=== PATIENT | male | born 1985 | race Caucasian/White ===

== ENCOUNTER 2017-01-28 11:55 | Emergency (ER) | payer OTHER ==
[~2017-01-28] VITALS: Ht 177.8 cm; Wt 65.8 kg
[~2017-01-28 11:55] MED LIST: AMOXIL 875 MG875 MG PO; MOTRIN 600 MG600 MG PO; PREDNISONE 20MG20 MG PO
--- NOTE | 2017-01-28 12:31 | ED SKIN/ALLERGY COMPLAINT ---
History of Present Illness General Chief Complaint: Laceration Procedure Stated Complaint: LAC TO HEAD Source: patient Exam Limitations: no limitations Allergies Uncoded Allergies: SEASONAL (03/30/12) Reconcile Medications No Known Home Medications Triage Note: 31 Y/O MALE C/O LACERATION TO R SIDED EYEBROW, CUT ON PLASTIC HANDLE OF SHOVEL. UNSURE OF LAST TETANUS. CLEAN LACERATION NOTED WITH NO ACTIVE BLEEDING PT STATES THIS IS NOT WORKMANS COMP. Triage Nurses Notes Reviewed? yes HPI: This patient is a 31-year-old male who presented to the emergency department today for evaluation of a laceration to his right eyebrow. The patient reported that he was shoveling sounds morning when the handle of the shovel bounced back and hit him in the head. He denied any loss of consciousness. He reported that just after the incident, he felt a little dizzy, but this resolved. He reported that he is having 5 out of 10, throbbing pain at the site of the laceration. He denied any headaches, blurry vision, lightheadedness, or any current dizziness. The patient is unsure of his last tetanus immunization. (LELA CROSS PA-C) Vital Signs & Intake/Output Vital Signs & Intake/Output ED Intake and Output 01/29 0000 01/28 1200 Intake Total Output Total Balance Patient 145 lb Weight Past History Travel History Traveled to [place] past 21 day No Medical History Any Pertinent Medical History? see below for history Neurological: NONE EENT: NONE Cardiovascular: NONE Respiratory: NONE Gastrointestinal: NONE Hepatic: NONE Renal: NONE Musculoskeletal: NONE Psychiatric: NONE Endocrine: NONE Blood Disorders: NONE Cancer(s): NONE WOODWORKING MACHINE OPERATOR/Reproductive: NONE Surgical History Surgical History: non-contributory Psychosocial History What is your primary language Welsh Tobacco Use: Current Daily Use Daily Tobacco Use Amount/Type: => 5 Cigarettes daily Family History Hx Contributory? No (LELA CROSS PA-C) Review of Systems Review of Systems Constitutional: Reports: no symptoms. EENTM: Reports: no symptoms. Respiratory: Reports: no symptoms. Cardiovascular: Reports: no symptoms. GI: Reports: no symptoms. Musculoskeletal: Reports: no symptoms. Skin: Reports: see HPI. Neurological/Psychological: Reports: no symptoms. All Other Systems: Reviewed and Negative (LELA CROSS PA-C) Physical Exam Physical Exam General Appearance: well developed/nourished, no apparent distress, alert, awake Comments: Well-developed well-nourished person in no acute distress HEENT: Head normocephalic/atraumatic, no bony deformities or step-offs of the skull, moist mucous membranes Neck: Supple Back: Normal gait Respiratory: No respiratory distress. Speaking Extremities: No edema, full range of motion Neuro: Alert and oriented x3. No focal neurologic deficits Psych: Mood affect normal, normal memory normal judgment. Skin: Warm and dry, no rash on exposed skin. Approximately 1 cm in length, linear, subcutaneous laceration to the lateral aspects of the right eyebrow with mild amount of active bleeding, no stranding erythema or edema, no retained foreign body, and nontender to palpation. (LELA CROSS PA-C) Progress Differential Diagnosis: abscess/cellulitis, skin laceration, skin tear, skin avulsion, concussion, intracranial hemorrhage Plan of Care: Laboratory Tests 01/28/17 1207: Urine Test Cancelled Departure Departure Disposition: HOME OR SELF CARE Condition: Stable Clinical Impression Primary Impression: Laceration Referrals: JUAN ALBERTO CLARK,CRISTAL Thrasher (PCP/Family) Additional Instructions: Please keep the wound site clean and dry. You may apply bacitracin to the wound once a day over the next 3 days. Please return to the emergency department in 7 days for a wound check and suture removal. Return sooner for any signs of infection such as fevers, chills, spreading of redness around the wound site, pus drainage from the wound site, or for any other concerns. Departure Forms: Customer Survey General Discharge Information Prescriptions: Current Visit Scripts No Known Home Medications (LELA CROSS PA-C) PA/JEWELRY ESTIMATOR Co-Sign Statement Statement: ED Attending supervision documentation- [] I saw and evaluated the patient. I have also reviewed all the pertinent lab results and diagnostic results. I agree with the findings and the plan of care as documented in the PA's/JEWELRY ESTIMATOR's documentation. [x] I have reviewed the ED Record and agree with the PA's/JEWELRY ESTIMATOR's documentation. [] Additions or exceptions (if any) to the PAs/JEWELRY ESTIMATOR's note and plan are summarized below: [] (HEBER LOREDO DO) Procedures Laceration/Wound Repair Laceration/Wound Repair: Wound Location: face Wound's Depth, Shape: linear, subcutaneous Wound Length (cm): 1 Wound Explored: irrigated extensively Irrigated w/ Saline (ccs): 500 Betadine Prep? Yes Anesthesia: 1% lidocaine Volume Anesthetic (ccs): 2 Wound Repaired With: sutures Suture Size/Type: 5:0 Number of Sutures: 3 Layer Closure? No Sterile Dressing Applied: Yes Splint Applied? No Sling Applied? No Tetanus Status: not up to date Progress: ENEDELIA student assisted in closure of this wound (LELA CROSS PA-C)
[2017-01-28 13:36] VITALS: BP 120/80
== END 2017-01-28 13:36 ==
LOC: ERH 11:55
DX: S01.111A Laceration without foreign body of right eyelid and periocular area, initial encounter (principal); W22.8XXA Striking against or struck by other objects, initial encounter; Y93.H1 Activity, digging, shoveling and raking; Y93.9 Activity, unspecified
CPT/HCPCS: 81025; 90471; 90714

== ENCOUNTER 2017-02-04 09:04 | Emergency (ER) | payer OTHER ==
[~2017-02-04] VITALS: Ht 177.8 cm; Wt 63.5 kg
[2017-02-04 09:06] VITALS: BP 113/70
--- NOTE | 2017-02-04 09:17 | ED SKIN/ALLERGY COMPLAINT ---
History of Present Illness General Chief Complaint: Suture Removal/Wound Recheck Stated Complaint: SUTURE REMOVAL Source: patient Exam Limitations: no limitations Vital Signs & Intake/Output Vital Signs & Intake/Output Vital Signs Date Time Temp Pulse Resp B/P Pulse O2 O2 Flow FiO2 Ox Delivery Rate 02/04 0906 97.9 65 16 113/70 98 Room Air Allergies Uncoded Allergies: SEASONAL (03/30/12) Reconcile Medications No Known Home Medications Triage Note: HERE FOR SUTURE REMOVAL RIGHT EYEBROW PLACED LAST THURSDAY. Triage Nurses Notes Reviewed? yes HPI: This patient is a 31-year-old male who presented to the emergency department today for suture removal. On 01/28/2017, he had 3 sutures placed to his right eyebrow. The patient denied any pain. No fevers or chills. No pus drainage from the wound site. No spreading of redness around the wound site. No other complaints. (LELA CROSS PA-C) Past History Travel History Traveled to [place] past 21 day No Medical History Any Pertinent Medical History? see below for history Neurological: NONE EENT: NONE Cardiovascular: NONE Respiratory: NONE Gastrointestinal: NONE Hepatic: NONE Renal: NONE Musculoskeletal: NONE Psychiatric: NONE Endocrine: NONE Blood Disorders: NONE Cancer(s): NONE SECURITY SYSTEMS INTEGRATOR/Reproductive: NONE Tetanus Vaccine: 01/28/17 Surgical History Surgical History: non-contributory Psychosocial History What is your primary language Maltese Tobacco Use: Current Daily Use Daily Tobacco Use Amount/Type: => 5 Cigarettes daily ETOH Use: denies use Illicit Drug Use: denies illicit drug use Family History Hx Contributory? No (LELA CROSS PA-C) Review of Systems Review of Systems Constitutional: Reports: no symptoms. EENTM: Reports: no symptoms. Respiratory: Reports: no symptoms. Cardiovascular: Reports: no symptoms. GI: Reports: no symptoms. Musculoskeletal: Reports: no symptoms. Skin: Reports: see HPI. Neurological/Psychological: Reports: no symptoms. All Other Systems: Reviewed and Negative (LELA CROSS PA-C) Physical Exam Physical Exam General Appearance: well developed/nourished, no apparent distress, alert, awake Comments: Well-developed well-nourished person in no acute distress HEENT: Head normocephalic/atraumatic, moist mucous membranes Neck: Supple, no lymphadenopathy Back: Normal gait Respiratory: No respiratory distress. Speaking in full sentences Extremities: No edema, full range of motion Neuro: Alert and oriented x3 Psych: Mood affect normal, normal memory normal judgment. Skin: Warm and dry, no rash on exposed skin. 3 sutures placed to the lateral aspect of right eyebrow with no surrounding erythema or edema, no drainage, and nontender to palpation (LELA CROSS PA-C) Progress Differential Diagnosis: abscess/cellulitis, SUTURE REMOVAL Plan of Care: This patient is a 31-year-old male who presented to the emergency department today for evaluation of suture removal. The patient has not had any signs or symptoms of infection. 3 sutures were removed from the wound site and the patient tolerated the procedure well. Stable for discharge (LELA CROSS PA-C) Departure Departure Disposition: HOME OR SELF CARE Condition: Stable Clinical Impression Primary Impression: Visit for suture removal Referrals: JUAN ALBERTO CLARK,CRISTAL Thrasher (PCP/Family) Additional Instructions: Continue to keep the wound site clean and dry. Return for any worsening symptoms or concerns. Departure Forms: Customer Survey General Discharge Information Prescriptions: Current Visit Scripts No Known Home Medications (LELA CROSS PA-C) PA/INTERMEDIATE CARD TENDER Co-Sign Statement Statement: ED Attending supervision documentation- [] I saw and evaluated the patient. I have also reviewed all the pertinent lab results and diagnostic results. I agree with the findings and the plan of care as documented in the PA's/INTERMEDIATE CARD TENDER's documentation. x I have reviewed the ED Record and agree with the PA's/INTERMEDIATE CARD TENDER's documentation. [] Additions or exceptions (if any) to the PAs/INTERMEDIATE CARD TENDER's note and plan are summarized below: [] (ERIC CLARK,SAVANNAH)
== END 2017-02-04 09:20 ==
LOC: ERH 09:04
DX: S01.111A Laceration without foreign body of right eyelid and periocular area, initial encounter (principal); X58.XXXA Exposure to other specified factors, initial encounter
CPT/HCPCS: 99281